=== PATIENT | female | born 1935 | race Caucasian/White ===

== ENCOUNTER → 2022-12-04 09:17 | Outpatient (BNVA) | payer MEDICARE, OTHER, MEDICAID, SELFPAY | PROVIDERS: Family Provider Nurse Practitioner; PCP Nurse Practitioner; Visit Provider Podiatrist Foot & Ankle Surgery | DX: I73.9 Peripheral vascular disease, unspecified (principal); M20.41 Other hammer toe(s) (acquired), right foot; M20.42 Other hammer toe(s) (acquired), left foot; M21.612 Bunion of left foot; M21.611 Bunion of right foot; L60.3 Nail dystrophy | CPT/HCPCS: 11721; 93922; 93923; 99204 ==

== ENCOUNTER 2023-03-01 21:02 | Emergency (ER) | payer MEDICARE, OTHER, MEDICAID, SELFPAY ==
--- NOTE | 2023-03-01 21:11 | W.ED.FALL ---
HPI - Fall General: Chief Complaint: Extremity Injury, Lower Stated Complaint: FALL Time Seen by Provider: 03/01/23 21:10 History of Present Illness: 87-year-old female comes in today with complaints of injury and pain to the right hip. Patient resides at [facility]. Patient had fallen at the nursing center. Concern for fracture of the right hip. Patient appears nontoxic. Patient has a history of dementia. Patient is verbal. Patient is also hard of hearing. Fall from: standing Fall witnessed: yes, by living facility staff Place fall occurred: [facility] Loss of consciousness: None Prolonged down time: no Symptoms prior to fall: none Context: tripped/slipped Location of injury: other (Right hip) Associated symptoms-after fall: Denies abdominal pain, chest pain or headache(s) Review of Systems General: Reports: 10 or more systems reviewed and unremarkable except in HPI and below Card: Denies: chest pain Resp: Denies: dyspnea GI: Denies: abdominal pain Musc: Reports: extremity pain Skin/Breast: Denies: rash Neuro: Denies: headache(s) PFS ED PFSH: Medical History GERD (gastroesophageal reflux disease) Strain of foot, left Social History Smoking and tobacco status: never smoked Second hand smoke exposure: No Smoking risk assessment/counseling performed?: No Alcohol intake: never Desire information about alcohol rehabilitation?: No Counseling given: No Substance/Drug Use: never Desire information about substance/drug rehabilitation?: No Physical Exam Const: COMMON NORMALS: alert HENMT: COMMON NORMALS: atraumatic HEAD & SCALP: atraumatic Neck/C-Spine: COMMON NORMALS: full ROM Resp: COMMON NORMALS: normal respiratory effort and clear to auscultation bilaterally AUSCULTATION: clear to auscultation bilaterally Cardio: COMMON NORMALS: regular rate RATE: regular rate GI: COMMON NORMALS: Soft to palpation and non-tender PALPATION: Yes Soft to palpation Extremity: RIGHT LOWER EXTREMITY: Yes hip joint (Hip tenderness) Neuro: SENSORIUM/ORIENTATION: Yes alert Skin: COMMON NORMALS: turgor normal GENERAL SKIN EXAM: turgor normal Course Vital Signs: Vital signs: Vital Signs Temperature 98.4 F 03/01/23 21:20 Pulse Rate 66 03/01/23 21:57 Respiratory Rate 19 H 03/01/23 21:53 Blood Pressure 175/76 03/01/23 21:57 Pulse Oximetry 95 03/01/23 21:57 Oxygen Delivery Me thod Room Air 03/01/23 21:57 MDM - Fall Medical Decision Making Patient was brought in by EMS for concerns of injury to the right hip after a slip and fall at the [facility]. On exam patient has some reported pain in the hip area. Patient does have a surgical scar there that is intact. Patient does have some internal rotation of the extremity. Patient appears in mild to no pain. Vital signs are normal. Differential diagnosis includes not limited to fracture, dislocation, contusions. X-ray of the hip and pelvis noted no fracture. X-ray of the chest x-ray was normal. Laboratory values were unremarkable. Reviewed with patient and family x-ray results with recommendations for follow-up. Family reported understanding agreed to plan. Lab Data 03/01/23 21:29 03/01/23 21:29 Radiology Impressions Chest X-Ray 03/01/23 21:13 IMPRESSION: No acute findings. Hip/Pelvis X-Ray 03/01/23 21:13 IMPRESSION: Postop and chronic findings above, negative for acute fracture. Laboratory Results WBC 7.4 10^3/uL (4.0-10.0) 03/01/23 21: RBC 4.39 10^6/uL (4.1-5.3) 03/01/23 21:29 Hgb 13.4 g/dL (11.5-15.3) 03/01/23 21: Hct 41.3 % (37.0-47.0) 03/01/23 21: MCV 94.1 fl (81-99) 03/01/23 21: MCH 30.5 pg (28.0-34.0) 03/01/23 21: MCHC 32.4 g/dL (30.0-36.0) 03/01/23 21: RDW 12.9 % (12.1-15.1) 03/01/23: Plt Count 146 10^3/cmm (130-400) 03/01/23 21: MPV 11.2 fL (7.4-10.4) H 03/01/23 21:29 Neut % (Auto) 63.1 % 03/01/23 21: Lymph % (Auto) 26.6 % 03/01/23 21: [place] % (Auto) 5.9 % 03/01/23 21: Eos % (Auto) 2.4 % 03/01/23 21: Baso % (Auto) 0.4 % 03/01/23 21: Neut # (Auto) 4.66 10^3/uL (1.8-7.7) 03/01/23: Lymph # (Auto) 2.0 10^3/uL (0.8-4.8) 03/01/23: [place] # (Auto) 0.4 10^3/uL (0.2-0.9) 03/01/23: Eos # (Auto) 0.2 10^3/uL (0.0-0.8) 03/01/23: Baso # (Auto) 0.0 10^3/uL (0.0-0.1) 03/01/23: Nucleated RBC % (auto) 0 % 03/01/23: Nucleated RBCs # 0.0 /100WBC 03/01/23 21: Sodium 139 mmol/L (136-145) 03/01/23 21: Potassium 4.1 mmol/L (3.5-5.1) 03/01/23: Chloride 106 mmol/L (98-107) 03/01/23: Carbon Dioxide 25 mmol/L (22-29) 03/01/23: Anion Gap 12.1 (5-19) 03/01/23 21: BUN 16 mg/dL (8-23) 03/01/23 21: Creatinine 0.6 mg/dL (0.5-0.9) 03/01/23: GFR Calculation Not Reportable 03/01/23: Glucose 91 mg/dL (65-115) 03/01/23 21: Calculated Osmolality 289 mOsm/kg (285-295) 03/01/23: Calcium 8.6 mg/dL (8.5-10.5) 03/01/23: Total Bilirubin 0.4 mg/dL (0.15-1.2) 03/01/23 21:29 AST 16 U/L (0-32) 03/01/23 21:29 ALT 10 U/L (0-33) 03/01/23 21:29 Alkaline Phosphatase 59 U/L (35-105) 03/01/23 21:29 Total Protein 6.0 g/dL (6.6-8.7) L 03/01/23 21:29 Albumin 3.7 g/dL (3.5-5.2) 03/01/23 21:29 Globulin 2.3 g/dL (1.3-4.6) 03/01/23 21:29 Discharge Plan Discharge Patient Disposition: Home Clinical Impression: Fall from slipping Qualifiers: Encounter type: initial encounter Qualified Code(s): W01.0XXA - Fall on same level from slipping, tripping and stumbling without subsequent striking against object, initial encounter Condition: Stable Prescriptions: No Action terbinafine HCl 250 mg tablet PO donepezil 5 mg tablet PO omeprazole 40 mg capsule,delayed release(DR/EC) See Rx Instructions .ROUTE .COMPLEX Qty: 30 5RF Dose Instruction: TAKE ONE CAPSULE BY MOUTH EVERY DAY Rx Instructions: TAKE ONE CAPSULE BY MOUTH EVERY DAY Discharge Orders: Discharge ED (Routine); Ordered 03/01/23 Ordered By: Jadon Henriquez Referrals: Delia Hay FNP [Primary Care Provider] - Anuradha Barger FNP [Referring] - Discharge Diet: Usual diet Discharge Activity: Increase activity as tolerated Patient Instructions: Fall Prevention for Older Adults (ED) Activity Restrictions/Additional Instructions: Home and rest. Activity as tolerated. Follow-up with primary care for further instructions. Use a walker or have assistance when up and ambulating. Coding Level of Care Code ED Mid Level Game Designer for Errol Buckley
--- NOTE | 2023-03-01 21:13 | XRR_ITS ---
PROCEDURE INFORMATION: Exam: XR Chest Exam date and time: 03/01/2023 9:37 PM Age: 87 years old Clinical indication: Injury or trauma; Fall; Additional info: Fall injury TECHNIQUE: Imaging protocol: Radiologic exam of the chest. Views: 1 view. COMPARISON: No relevant prior studies available. FINDINGS: Lungs: Aeac-av-[id number] COPD. No consolidation. Pleural spaces: Unremarkable. No pleural effusion. No pneumothorax. Heart/Mediastinum: Unremarkable. No cardiomegaly. Vasculature: Advanced diffuse vascular calcification noted. Bones/joints: Right shoulder arthroplasty. XR/XR chest 1V portable [id number] IMPRESSION: No acute findings.
--- NOTE | 2023-03-01 21:13 | ECG_ITS ---
[facility] Test Date: 2023-03-01 Pat Name: Radha Durán Department: Room: Gender: Female [employer] Technical Director: : 1935 Requested By: Jadon Abraham Order Number: [id number] Maximo MD: Valdemar Koroma M.D. Measurements Intervals Dieter[place] Rate: 69 P: 99 SC: 250 QRS: -16 QRSD: 108 T: 78 QT: 389 QTc: 418 Interpretive Statements SINUS RHYTHM WITH FIRST DEGREE AV BLOCK No previous ECG available for comparison Electronically Signed On 03-02-2023 7:57:49 CDT by Valdemar Koroma M.D. [id number]
--- NOTE | 2023-03-01 21:13 | XRR_ITS ---
PROCEDURE INFORMATION: Exam: XR Right Hip Exam date and time: 03/01/2023 9:41 PM Age: 87 years old Clinical indication: Hip pain; Right hip; Additional info: Fall, injury TECHNIQUE: Imaging protocol: Radiologic exam of the right hip. Views: 1 view hip with pelvis when performed. COMPARISON: No relevant prior studies available. FINDINGS: Bones/joints: Severe osteopenia. A right hip arthroplasty is seen with some acetabular lucency. There is superior migration of the acetabular component. This has a chronic appearance. No fracture noted. Left hip pinning. Soft tissues: Unremarkable. Vasculature: Advanced diffuse vascular calcification noted. XR/XR hip RT 2-3V wo/w pel* [id number] IMPRESSION: Postop and chronic findings above, negative for acute fracture.
[2023-03-01 21:20] VITALS: BP 154/73; PULSE 69; RESP 16; TEMP 36.9; O2SAT 95; BMI 18.7
[2023-03-01 21:48] LABS: Basophils % 0.4 %; Eosinophils # 0.2 10^3/uL (0.0-0.8); Eosinophils % 2.4 %; Hematocrit 41.3 % (37.0-47.0); Hemoglobin 13.4 g/dL (11.5-15.3); Lymphocytes % 26.6 %; Mean Corpuscular HGB Conc 32.4 g/dL (30.0-36.0); Mean Corpuscular Hemoglobin 30.5 pg (28.0-34.0); Mean Corpuscular Volume 94.1 fl (81-99); Mean Platelet Volume 11.2 fL (7.4-10.4); Monocytes # 0.4 10^3/uL (0.2-0.9); Monocytes % 5.9 %; Neutrophils # 4.66 10^3/uL (1.8-7.7); Neutrophils % 63.1 %; Nucleated Red Blood Cells % 0 %; Platelet Count 146 10^3/cmm (130-400); Red Blood Count 4.39 10^6/uL (4.1-5.3); Red Cell Distribution Width 12.9 % (12.1-15.1); White Blood Count 7.4 10^3/uL (4.0-10.0)
[2023-03-01 21:53] VITALS: RESP 19
[2023-03-01] MEDS: fentaNYL 50 mcg/mL INJ 2mL 25 MCG IVP (21:53)
[2023-03-01 21:57] VITALS: BP 175/76; PULSE 66; O2SAT 95
[2023-03-01 22:01] LABS: Alanine Aminotransferase 10 U/L (0-33); Albumin Level 3.7 g/dL (3.5-5.2); Alkaline Phosphatase 59 U/L (35-105); Anion Gap 12.1 (5-19); Aspartate Amino Transferase 16 U/L (0-32); Blood Urea Nitrogen 16 mg/dL (8-23); Calcium 8.6 mg/dL (8.5-10.5); Carbon Dioxide 25 mmol/L (22-29); Chloride 106 mmol/L (98-107); Creatinine Clr Calc Pharmacy 40.3607; Globulin 2.3 g/dL (1.3-4.6); Glucose 91 mg/dL (65-115); Osmolality Calculated 289 mOsm/kg (285-295); Potassium 4.1 mmol/L (3.5-5.1); Sodium 139 mmol/L (136-145); Total Bilirubin 0.4 mg/dL (0.15-1.2)
[2023-03-01 22:55] VITALS: BP 163/73; PULSE 73; O2SAT 95
== END 2023-03-01 23:06 | disposition home or self-care (01) ==
PROVIDERS: Emergency Provider Nurse Practitioner Family; PCP Nurse Practitioner
DX: S79.911A Unspecified injury of right hip, initial encounter (principal); W01.0XXA Fall on same level from slipping, tripping and stumbling without subsequent striking against object, initial encounter; Y92.129 Unspecified place in nursing home as the place of occurrence of the external cause
CPT/HCPCS: 36415; 71045; 73502; 80053; 85025; 93005; 96374; 99285; J3010

== ENCOUNTER → 2023-03-27 10:41 | Outpatient (BNVA) | payer MEDICARE, OTHER, MEDICAID, SELFPAY | PROVIDERS: PCP Nurse Practitioner; Visit Provider Podiatrist Foot & Ankle Surgery | DX: I73.9 Peripheral vascular disease, unspecified; L60.3 Nail dystrophy; L84 Corns and callosities; M20.42 Other hammer toe(s) (acquired), left foot; M20.41 Other hammer toe(s) (acquired), right foot; M21.612 Bunion of left foot; M21.611 Bunion of right foot | CPT/HCPCS: 11055; 11721 ==

== ENCOUNTER 2023-06-28 08:01 | Outpatient (CLI) | payer MEDICARE, OTHER, MEDICAID, SELFPAY ==
--- NOTE | 2023-06-28 08:00 | USCV_ITS ---
Radha Durán Age: 88 Gender: F : 1935 Exam Date: 06/28/2023 08:29 Ordering Phys: Qamar Riddle MD Technologist: DOYLE Exam Location: [facility] [place] Indication: edema, Eval LV function BP: 118 / 66 HR: 68 Rhythm: Sinus Technical Quality: Adequate MEASUREMENTS (Male / Female) Normal Values 2D ECHO LV Diastolic Diameter PLAX 3.6 cm 4.2 - 5.9 / 3.9 - 5.3 cm LV Systolic Diameter PLAX 2.3 cm IVS Diastolic Thickness 1.7 cm 0.6 - 1.0 / 0.6 - 0.9 cm IVS Systolic Thickness 2.0 cm LVPW Diastolic Thickness 1.1 cm 0.6 - 1.0 / 0.6 - 0.9 cm LVPW Systolic Thickness 1.9 cm LVOT Diameter 2.0 cm LV Ejection Fraction 2D Teich 66.7 % LV Ejection Fraction MOD 2C 76.4 % LV Ejection Fraction 2C AL 77.6 % LA Diameter 3.1 cm LA Width 3.4 cm LA Height 3.5 cm RA Width 2.7 cm RA Height 5.7 cm Aorta at Sinotubular Diameter 2.9 cm M-MODE Aortic Annulus Diameter 3.1 cm LA Ao Ratio MM 1.1 MV E Point Septal Separation 0.5 cm DOPPLER AV Peak Velocity 126.0 cm/s LVOT Peak Velocity 106.0 cm/s AV Area Cont Eq vti 2.9 cm squared AV Area Cont Eq pk 2.8 cm squared MV Peak Velocity 111.0 cm/s MV Area PHT 3.0 cm squared Mitral E to A Ratio 0.8 MV E' Velocity 44.5 cm/s Mitral E to MV E' Ratio 9.2 Mitral E to LV E' Lateral Ratio 10.2 Mitral E to LV E' Septal Ratio 8.6 TR Peak Velocity 272.3 cm/s TR Peak Gradient 29.7 mmHg Right Atrial Pressure 5.0 mmHg Pulmonary Artery Systolic Pressu 34.7 mmHg PV Peak Velocity 85.0 cm/s RV Acceleration Time 0.1 s RV Ejection Time 0.3 s RV AcT/ET 0.5 FINDINGS Left Ventricle Technically limited quality echocardiogram because of poor ultrasonic windows. Left ventricle is normal in size. LV systolic function is normal with EF of 55 to 60%. No regional wall motion abnormalities are seen. Grade 1 diastolic dysfunction Right Ventricle Normal in size and function Right Atrium Normal in size Left Atrium Normal in size Mitral Valve Mild mitral annular calcification. Mild mitral regurgitation Aortic Valve Aortic valve is thickened and calcified. No significant stenosis or regurgitation. Tricuspid Valve Moderate to severe tricuspid regurgitation. RVSP is 35 to 40 mmHg. This is consistent with mild pulmonary hypertension Pulmonic Valve Not well visualized Pericardium Small sized pericardial effusion Aorta Normal in size IVC Appears to be normal CONCLUSIONS LV systolic function is normal with EF of 55 to 60%. Grade 1 diastolic dysfunction Mild mitral regurgitation Moderate to severe tricuspid regurgitation Mild pulmonary hypertension Small sized pericardial effusion No comparison studies are available Valdemar Koroma MD (Electronically Signed) Final Date: 28 June 2023 11:22 S
== END 2023-06-28 08:02 | disposition home or self-care (01) ==
LOC: RAD 08:02
PROVIDERS: PCP Nurse Practitioner; Visit Provider Internal Medicine
DX: R60.9 Edema, unspecified (principal); I08.1 Rheumatic disorders of both mitral and tricuspid valves; I27.20 Pulmonary hypertension, unspecified; I31.39 Other pericardial effusion (noninflammatory); I73.9 Peripheral vascular disease, unspecified; L60.3 Nail dystrophy; L84 Corns and callosities; M20.42 Other hammer toe(s) (acquired), left foot; M20.41 Other hammer toe(s) (acquired), right foot; M21.611 Bunion of right foot; M21.612 Bunion of left foot
CPT/HCPCS: 11055; 11721; 93306

== ENCOUNTER → 2023-11-06 09:46 | Outpatient (BNVA) | payer MEDICARE, OTHER, MEDICAID, SELFPAY | PROVIDERS: PCP Internal Medicine; Visit Provider Podiatrist Foot & Ankle Surgery | DX: L84 Corns and callosities (principal); I73.9 Peripheral vascular disease, unspecified; L60.3 Nail dystrophy | CPT/HCPCS: 11721 ==

== ENCOUNTER 2024-02-15 15:24 | Emergency (ER) | payer MEDICARE, OTHER, MEDICAID, SELFPAY ==
[2024-02-15] VITALS (28 sets, daily range): BP systolic 92–143; BP diastolic 66–80; PULSE 74–173; RESP 12–23; TEMP 36.7; O2SAT 91–95
--- NOTE | 2024-02-15 15:36 | CTR_ITS ---
PROCEDURE INFORMATION: Exam: CT Cervical Spine Without Contrast Exam date and time: 02/15/2024 3:53 PM Age: 88 years old Clinical indication: Injury or trauma; Fall; Blunt trauma; Additional info: Fall on thinners TECHNIQUE: Imaging protocol: Computed tomography of the cervical spine without contrast. Radiation optimization: All CT scans at this facility use at least one of these dose optimization techniques: automated exposure control; mA and/or kV adjustment per patient size (includes targeted exams where dose is matched to clinical indication); or iterative reconstruction. COMPARISON: CT head wo con* [id number] 02/15/2024 3:53 PM RADIATION DOSE METRICS: Total DLP (mGy-cm): 517.7 FINDINGS: Bones: There are degenerative changes throughout the visualized spine including marginal osteophyte formations, endplate degenerative changes, and facet arthropathy. Multilevel disc space narrowing. There are multilevel broad-based disc osteophyte complexes which indent the anterior thecal sac and result in varying degrees of bilateral neuroforamina narrowing. Lungs: Lung apices are normal. Soft tissues: There are benign-appearing soft tissue calcifications. There is chronic appearing soft tissues thickening with associated calcifications posterior to the dens. CT/CT cervical spin wo con* [id number] IMPRESSION: There are degenerative changes as described above. No evidence for acute fracture.
--- NOTE | 2024-02-15 15:36 | CTR_ITS ---
PROCEDURE INFORMATION: Exam: CT Head Without Contrast Exam date and time: 02/15/2024 3:53 PM Age: 88 years old Clinical indication: Injury or trauma; Blunt trauma (contusions or hematomas); Consciousness not specified; Injury date: 02/15/24; Injury details: Witnessed fall at standing height. PT is on blood thinners. PT has large lac above R eyebrow that is bandaged but has a large amount of bleeding when bandage is removed. PT in c collar. ; Additional info: Fall on thinners, right head injury/lac TECHNIQUE: Imaging protocol: Computed tomography of the head without contrast. Radiation optimization: All CT scans at this facility use at least one of these dose optimization techniques: automated exposure control; mA and/or kV adjustment per patient size (includes targeted exams where dose is matched to clinical indication); or iterative reconstruction. COMPARISON: CT cervical spin wo con* [id number] 02/15/2024 3:53 PM RADIATION DOSE METRICS: Total DLP (mGy-cm): 1732.08 FINDINGS: Brain: There is diffuse cerebral atrophy present, consistent with this patient's age. Periventricular and subcortical white matter low densities are present which at this age likely represent microvascular ischemic change. There are chronic lacunar infarcts in the zarate radiata and centrum semiovale.No evidence for large acute ischemic infarction. Please note acute ischemia can be occult by head CT. No evidence for acute intracranial hemorrhage. Cerebral ventricles: No ventriculomegaly. Paranasal sinuses: Visualized sinuses are unremarkable. No fluid levels. Mastoid air cells: Visualized mastoid air cells are well aerated. Bones: Unremarkable. No acute fracture. Soft tissues: Right frontal soft tissue laceration with associated edema and emphysema. Vasculature: Calcified plaque is present within the carotid siphons. CT/CT head wo con* [id number] IMPRESSION: 1. Right frontal soft tissue laceration with associated edema and emphysema. 2. There are senescent changes of the brain as described above. No evidence for large acute ischemic infarction or acute intracranial injury.
--- NOTE | 2024-02-15 15:37 | XR_ITS ---
WS: [email or web address] Exam: XR chest 1V portable [id number] Date/Time of Exam: 02/15/2024 3:54 PM Reason For Exam: fall from standing Comparison 03/01/2023. The lungs are fully inflated and clear. There may be a trace RIGHT basal pleural effusion. Mild cardi ac enlargement. The mediastinum is normal in contour for technique. RIGHT reverse shoulder prosthesis noted. XR/XR chest 1V portable [id number] IMPRESSION: 1. No acute infiltrates. 2. Probable trace RIGHT basal pleural effusion. Mild cardiac enlargement. 3. RIGHT reverse shoulder prosthesis noted. Articular relationship of the prost hesis is undetermined. If there is suspicion of dislocation then detailed radio graphs of the RIGHT shoulder should be obtained.
--- NOTE | 2024-02-15 15:37 | XR_ITS ---
WS: [email or web address] Exam: XR elbow RT 2V [id number] Date/Time of Exam: 02/15/2024 3:55 PM Reason For Exam: fall with injury No obvious fracture. Moderate degenerative joint changes. No obvious joint effusion. Osteopenia. XR/XR elbow RT 2V [id number] IMPRESSION: 1. Degenerative change and osteopenia.
--- NOTE | 2024-02-15 15:40 | ED_ITS ---
HPI - Fall 2 General: Chief Complaint: Head Injury Stated Complaint: fall Time Seen by Provider: 02/15/24 15:28 History of Present Illness: 88-year-old female presents emergency [facility] chief complaint of fall from standing at the [facility] patient is on Eliquis patient presents by EMS with a laceration skin tear appreciated to her right mu-ism patient is a very poor historian it is unclear whether or not patient had a loss of consciousness during the event patient does not endorse any other associated injuries. Per EMS the patient also has a right elbow skin tear. Patient presents to the ER via by EMS for further assessment and management. Associated symptoms-after fall: Denies abdominal pain, chest pain or headache(s) Review of Systems 2 General: Reports: 10 or more systems reviewed and unremarkable except in HPI and below Const: Denies: fever(s), chills, fatigue or malaise Eyes: Denies: change in vision or blurry vision Card: Denies: chest pain or palpitations Resp: Denies: dyspnea or productive cough GI: Denies: abdominal pain, nausea or vomiting : Denies: flank pain Musc: Denies: extremity pain or extremity swelling Skin/Breast: Reports: skin tenderness and skin swelling; Denies: rash or pruritus Neuro: Denies: headache(s) Psych: Denies: anxiety or depression Oniel/Lymph: Denies: easy bleeding All/Imm: Denies: urticaria, throat swelling or facial swelling PFSH ED 2 PFSH: Medical History Strain of foot, left GERD (gastroesophageal reflux disease) Social History Smoking and tobacco/nicotine status: never used tobacco/nicotine Second hand smoke exposure: No Alcohol intake: never Substance/Drug Use: never Physical Exam 2 Const: COMMON NORMALS: no acute distress and healthy appearing; negative for patient oriented x3 (Alert oriented x 1 GCS is 15 no focal neurodeficit appreciated large avulsi) HENMT: COMMON NORMALS: normocephalic and atraumatic HEAD & SCALP: n ormocephalic and atraumatic Eye: COMMON NORMALS: Equal, round and reactive pupils present and EOMs intact bilaterally PUPIL: Yes Equal, round and reactive pupils present Neck/C-Spine: COMMON NORMALS: full ROM, supple and no JVD Lymph: LYMPHATIC: no lymphadenopathy noted Chest: COMMONS NORMALS: normal inspection of the chest and normal palpation of entire chest wall Resp: COMMON NORMALS: normal respiratory effort, No retractions and clear to auscultation bilaterally EFFORT & INSPECTION: Yes able to speak in complete sentences and Yes symmetric chest movement AUSCULTATION: clear to auscultation bilaterally Cardio: COMMON NORMALS: no JVD, regular rate and regular rhythm RATE: r egular rate RHYTHM: regular rhythm GI: COMMON NORMALS: Normal to inspection, nondistended, normoactive bowel sounds present, Soft to palpation and non-tender INSPECTION: Yes normal to inspection PALPATION: Yes Soft to palpation : COMMON NORMALS: Yes no CVA tenderness BLADDER/KIDNEY EXAM: Yes no CVA tenderness Back/Pelvis: COMMON NORMALS: no CVA tenderness Extremity: COMMON NORMALS: normal to inspection and full ROM Neuro: COMMON NORMALS: CN's II-XII intact bilaterally, moves all extremities and no focal motor deficits; negative for patient oriented x3 (Alert oriented x 1 GCS is 15 no focal neurodeficit appreciated large avulsi) Psych: COMMON NORMALS: mental status grossly normal, Normal thought process present, cooperative and normal affect THOUGHT PROCESS: Normal thought process present Skin: COMMON NORMALS: no rashes or lesions noted GENERAL SKIN EXAM: no rashes or lesions noted OTHER: Large avulsion laceration appreciated to the right mu-ism with exposed underlying muscle no LOC with no obvious underlying tissue involvement or foreign body appreciated mild nonpulsatile bleeding appreciated. Procedures Laceration Patient had approximately 3 cm laceration appreciated to the right frontal region with mild nonpulsatile bleeding and secondary hematoma surrounding t: Site: face Side (If applicable): right Size (cm): 3 Description: flap Depth: involves muscle layer Local Anesthetic: lidocaine 1% and with epi Amount of anesthesia used (mL): 3 Skin layer closed with: nylon Size (cm): 5-0 Number of sutures: 5 Technique: simple, interrupted Course 2 Vital Signs: Vital signs: Vital Signs Temperature 98.1 F 02/15/24 15:32 Pulse Rate 78 02/15/24 16:30 Respiratory Rate 16 02/15/24 16:30 Blood Pressure 127/75 02/15/24 16:30 Pulse Oximetry 94 02/15/24 16:30 Oxygen Delivery Me thod Room Air 02/15/24 16:10 MDM - Fall Medical Decision Making The patient symptoms and condition CT imaging of the head and cervical spine will be obtained x-ray imaging the right elbow patient's tetanus shot will be updated patient undergo laceration repair upon completion of her CT imaging will continue to follow. Lab Data 02/15/24 16:35 02/15/24 16:35 Radiology Impressions Cervical Spine CT 02/15/24 15:36 IMPRESSION: There are degenerative changes as described above. No evidence for acute fracture. Head CT 02/15/24 15:36 IMPRESSION: 1. Right frontal soft tissue laceration with associated edema and emphysema. 2. There are senescent changes of the brain as described above. No evidence for large acute ischemic infarction or acute intracranial injury. Chest X-Ray 02/15/24 15:37 IMPRESSION: 1. No acute infiltrates. 2. Probable trace RIGHT basal pleural effusion. Mild cardiac enlargement. 3. RIGHT reverse shoulder prosthesis noted. Articular relationship of the prosthesis is undetermined. If there is suspicion of dislocation then detailed radiographs of the RIGHT shoulder should be obtained. Elbow X-Ray 02/15/24 15:37 IMPRESSION: 1. Degenerative change and osteopenia. Laboratory Results WBC 8.38 10^3/uL (3.29-11.43) 02/15/24 16:35 RBC 4.03 10^6/uL (3.85-5.65) 02/15/24 16:35 Hgb 12.70 g/dL (11.27-16.99) 02/15/24 16:35 Hct 39.6 % (36-47) 02/15/24 16:35 MCV 98.3 fl (85-98) H 02/15/24 16:35 MCH 31.5 pg (27-33) 02/15/24 16:35 MCHC 32.1 g/dL (30-55) 02/15/24 16:35 RDW 12.8 % (12.1-15.1) 02/15/24 16:35 Plt Count 218 10^3/cmm (157-399) 02/15/24 16:35 MPV 10.6 fL (7.4-10.4) H 02/15/24 16:35 Neut % (Auto) 64.6 % 02/15/24 16:35 Lymph % (Auto) 24.3 % 02/15/24 16:35 [place] % (Auto) 6.8 % 02/15/24 16:35 Eos % (Auto) 3.6 % 02/15/24 16:35 Baso % (Auto) 0.5 % 02/15/24 16:35 Neut # (Auto) 5.41 10^3/uL (1.8-7.7) 02/15/24 16:35 Lymph # (Auto) 2.0 10^3/uL (0.8-4.8) 02/15/24 16:35 [place] # (Auto) 0.6 10^3/uL (0.2-0.9) 02/15/24 16:35 Eos # (Auto) 0.3 10^3/uL (0.0-0.8) 02/15/24 16:35 Baso # (Auto) 0.0 10^3/uL (0.0-0.1) 02/15/24 16:35 Nucleated RBC % (auto) 0 % 02/15/24 16:35 Nucleated RBCs # 0.0 /100WBC 02/15/24 16:35 PT 14.10 SECONDS (12.1-14.9) 02/15/24 17:09 INR 1.05 (0.8-1.2) 02/15/24 17:09 APTT 37.4 SECONDS (23.9-36.7) H 02/15/24 17:09 Sodium 143 mmol/L (136-145) 02/15/24 16:35 Potassium 4.6 mmol/L (3.5-5.1) 02/15/24 16:35 Chloride 108 mmol/L (98-107) H 02/15/24 16:35 Carbon Dioxide 27 mmol/L (22-29) 02/15/24 16:35 Anion Gap 12.6 (5-19) 02/15/24 16:35 BUN 22 mg/dL (8-23) 02/15/24 16:35 Creatinine 0.5 mg/dL (0.5-0.9) 02/15/24 16:35 GFR Calculation Not Reportable 02/15/24 16:35 Glucose 98 mg/dL (65-115) 02/15/24 16:35 Calculated Osmolality 299 mOsm/kg (285-295) H 02/15/24 16:35 Calcium 9.2 mg/dL (8.5-10.5) 02/15/24 16:35 Total Bilirubin 0.2 mg/dL (0.15-1.2) 02/15/24 16:35 AST 19 U/L (0-32) 02/15/24 16:35 ALT 13 U/L (0-33) 02/15/24 16:35 Alkaline Phosphatase 98 U/L (35-105) 02/15/24 16:35 Total Protein 7.3 g/dL (6.6-8.7) 02/15/24 16:35 Albumin 4.0 g/dL (3.5-5.2) 02/15/24 16:35 Globulin 3.3 g/dL (1.3-4.6) 02/15/24 16:35 All radiology interpretation(s) finalized by discharge Discharge Plan Discharge Patient Disposition: Home Clinical Impression: Closed head injury Qualifiers: Encounter type: initial encounter Qualified Code(s): S09.90XA - Unspecified injury of head, initial encounter Laceration of face without complication Qualifiers: Encounter type: initial encounter Qualified Code(s): S01.81XA - Laceration without foreign body of other part of head, initial encounter Condition: Stable Prescriptions: No Action lorazepam 1 mg tablet 1 mg PO DAILY escitalopram oxalate 20 mg tablet PO Eliquis 2.5 mg tablet PO buspirone 5 mg tablet PO quetiapine 50 mg tablet PO memantine 10 mg tablet PO donepezil 5 mg tablet PO omeprazole 40 mg capsule,delayed release(DR/EC) See Rx Instructions .ROUTE .COMPLEX Qty: 30 5RF Dose Instruction: TAKE ONE CAPSULE BY MOUTH EVERY DAY Rx Instructions: TAKE ONE CAPSULE BY MOUTH EVERY DAY Discharge Orders: Discharge ED (Routine); Ordered 02/15/24 Ordered By: Danilo Weinstein Referrals: Qamar Riddle MD [Primary Care Provider] - 7-10 days (For suture removal and wound reevaluation) Discharge Activity: Resume usual activity Patient Instructions: Head Injury (ED), Facial Laceration (ED) Activity Restrictions/Additional Instructions: Please have the laceration sutures removed in approximately 1 week keep the wound clean dry intact and cover with triple about alcohol until completely healed you can do the same wound care to your skin tear on your right elbow all the imaging is come back unremarkable. Please further follow-up as previously indicated in which to return the interim if any of your symptoms persist or worse. Coding Level of Care Code ED [employer] Steward/Stewardess for Errol Buckley
[2024-02-15 16:44] LABS: Basophils % 0.5 %; Eosinophils # 0.3 10^3/uL (0.0-0.8); Eosinophils % 3.6 %; Hematocrit 39.6 % (36-47); Lymphocytes % 24.3 %; Mean Corpuscular HGB Conc 32.1 g/dL (30-55); Mean Corpuscular Hemoglobin 31.5 pg (27-33); Mean Corpuscular Volume 98.3 fl (85-98); Mean Platelet Volume 10.6 fL (7.4-10.4); Monocytes # 0.6 10^3/uL (0.2-0.9); Monocytes % 6.8 %; Neutrophils # 5.41 10^3/uL (1.8-7.7); Neutrophils % 64.6 %; Nucleated Red Blood Cells % 0 %; Platelet Count 218 10^3/cmm (157-399); Red Blood Count 4.03 10^6/uL (3.85-5.65); Red Cell Distribution Width 12.8 % (12.1-15.1); White Blood Count 8.38 10^3/uL (3.29-11.43)
[2024-02-15] MEDS: lidocaine-epi 1% 20 mL INJ INJECTION (16:45)
[2024-02-15 17:05] LABS: Alanine Aminotransferase 13 U/L (0-33); Alkaline Phosphatase 98 U/L (35-105); Anion Gap 12.6 (5-19); Aspartate Amino Transferase 19 U/L (0-32); Blood Urea Nitrogen 22 mg/dL (8-23); Calcium 9.2 mg/dL (8.5-10.5); Carbon Dioxide 27 mmol/L (22-29); Chloride 108 mmol/L (98-107); Globulin 3.3 g/dL (1.3-4.6); Glucose 98 mg/dL (65-115); Osmolality Calculated 299 mOsm/kg (285-295); Potassium 4.6 mmol/L (3.5-5.1); Sodium 143 mmol/L (136-145); Total Bilirubin 0.2 mg/dL (0.15-1.2); Total Protein 7.3 g/dL (6.6-8.7)
[2024-02-15 17:32] LABS: INR 1.05 (0.8-1.2)
[2024-02-15 17:33] LABS: Partial Thromboplastin Time 37.4 SECONDS (23.9-36.7)
[2024-02-15] MEDS: acetaminophen 325 mg Tablet 650 MG PO (17:54)
== END 2024-02-15 19:38 | disposition home or self-care (01) ==
PROVIDERS: Emergency Provider Emergency Medicine; PCP Internal Medicine
DX: S01.01XA Laceration without foreign body of scalp, initial encounter (principal); Z79.01 Long term (current) use of anticoagulants; S51.011A Laceration without foreign body of right elbow, initial encounter; W18.39XA Other fall on same level, initial encounter; Y92.129 Unspecified place in nursing home as the place of occurrence of the external cause
CPT/HCPCS: 36415; 70450; 71045; 72125; 73070; 80053; 85025; 85610; 85730; 99284; 99291